=== PATIENT | male | born 1985 | race Caucasian/White ===

== ENCOUNTER 2025-02-05 08:04 | Outpatient (CLI) | payer OTHER, SELFPAY | END 2025-02-05 08:05 | disposition home or self-care (01) | LOC: NFLDREF 02-06 07:49 | PROVIDERS: PCP Family Medicine; Referring Provider Family Medicine; Visit Provider Family Medicine | DX: R53.83 Other fatigue (principal) | CPT/HCPCS: 84270; 84402; 84403 ==